=== PATIENT | male | born 1955 | race Two or more races ===

== ENCOUNTER 2018-08-26 12:05 | Emergency (ER) | payer OTHER ==
[~2018-08-26] VITALS: Ht 175.3 cm; Wt 86.2 kg
[~2018-08-26 12:05] MED LIST: AVAPRO300 MG; CVS COD LIVER473 ML; FLOVENT 110MCG7.9 GM; KAYEXALATE15 GM/60 M; LEXAPRO20 MG; LIPITOR20 MG; NEURONTIN800 MG; NEXIUM40 MG/PACK; NORVASC10 MG; ONGLYZA2.5 MG; OSEL75CA PO; PROVENTIL HFA6.7 GM IH; PROVENTIL3 ML/2.5 M IH; SEROQUEL200 MG; SPIRIVA RESPIMAT4 G1; STARLIX120 MG; SURFAK240 MG; TOPROL XL100 MG; TRANXENE T-TAB7.5 MG; TRILIPIX135 MG; ULTRAM50 MG; ZYNCOF 20-400120 ML PO
[2018-08-26] MEDS ORDERED: LIPITOR20 MG (12:14)
[2018-08-26] MEDS ORDERED: LEXAPRO5 MG (12:16)
[2018-08-26] MEDS ORDERED: ATIVAN1 MG (12:18)
[2018-08-26] MEDS ORDERED: FISH OIL CONC1000 MG (12:18)
[2018-08-26] MEDS ORDERED: PEPCID20 MG (12:19)
[2018-08-26] MEDS ORDERED: STERILE SALINE126 ML (12:19)
== END 2018-08-26 15:24 | disposition home or self-care (01) ==
LOC: ER 12:05
DX: B34.9 Viral infection, unspecified (principal)

== ENCOUNTER 2019-03-06 11:13 | Emergency (ER) | payer OTHER ==
[~2019-03-06] VITALS: Ht 175.3 cm; Wt 86.2 kg
[~2019-03-06 11:13] MED LIST changes: +ATIVAN1 MG; +FISH OIL CONC1000 MG; +LEXAPRO5 MG; +PEPCID20 MG; +STERILE SALINE126 ML
[2019-03-06] MEDS ORDERED: OMEGA-31000 MG (11:45)
[2019-03-06] MEDS ORDERED: CYTRA-2 ORAL S473 ML (11:46)
[2019-03-06] MEDS ORDERED: STARLIX120 MG (11:47)
[2019-03-06] MEDS ORDERED: LIPITOR20 MG (11:48)
[2019-03-06] MEDS ORDERED: SPIRIVA RESPIMAT4 G1 (11:48)
== END 2019-03-06 14:01 | disposition home or self-care (01) ==
LOC: ER 11:13
DX: M72.2 Plantar fascial fibromatosis (principal)

== ENCOUNTER 2019-06-12 09:31 | Emergency (ER) | payer OTHER ==
[~2019-06-12] VITALS: Ht 175.3 cm; Wt 85.7 kg
[~2019-06-12 09:31] MED LIST changes: +CYTRA-2 ORAL S473 ML; +OMEGA-31000 MG
[2019-06-12] MEDS ORDERED: FLOVENT DISKU100 MCG IH (10:10)
[2019-06-12] MEDS ORDERED: LEVSIN0.125 MG PO (10:10)
[2019-06-12] MEDS ORDERED: LEXAPRO5 MG PO (10:11)
[2019-06-12] MEDS ORDERED: PEPCID AC20 MG PO (10:11)
[2019-06-12] MEDS ORDERED: SPIRIVA RESPIMAT4 G1 IH (10:11)
[2019-06-12] MEDS ORDERED: ATIVAN0.5 M1 PO (10:12)
[2019-06-12] MEDS ORDERED: SEROQUEL200 MG PO (10:12)
== END 2019-06-12 13:07 | disposition home or self-care (01) ==
LOC: ER 09:31
DX: K52.89 Other specified noninfective gastroenteritis and colitis (principal)

== ENCOUNTER 2020-02-12 14:30 | Emergency (ER) | payer OTHER ==
[~2020-02-12] VITALS: Ht 175.3 cm; Wt 84.8 kg
[~2020-02-12 14:30] MED LIST changes: +ATIVAN0.5 M1 PO; +FLOVENT DISKU100 MCG IH; +LEVSIN0.125 MG PO; +LEXAPRO5 MG PO; +PEPCID AC20 MG PO; +SEROQUEL200 MG PO; +SPIRIVA RESPIMAT4 G1 IH
== END 2020-02-12 17:03 | disposition home or self-care (01) ==
LOC: ER 14:30
DX: S61.022A Laceration with foreign body of left thumb without damage to nail, initial encounter (principal); W45.8XXA Other foreign body or object entering through skin, initial encounter; Y93.89 Activity, other specified; Y92.89 Other specified places as the place of occurrence of the external cause; Y99.8 Other external cause status

== ENCOUNTER 2020-02-22 09:54 | Emergency (ER) | payer OTHER ==
[~2020-02-22] VITALS: Ht 175.3 cm; Wt 82.6 kg
== END 2020-02-22 10:42 | disposition home or self-care (01) ==
LOC: ER 09:54
DX: Z48.02 Encounter for removal of sutures (principal)

== ENCOUNTER 2022-09-02 12:13 | Emergency (ER) | payer OTHER ==
[~2022-09-02] VITALS: Ht 175.3 cm; Wt 86.2 kg
[2022-09-02] MEDS ORDERED: CEFUROXIME500 MG PO (12:45)
[2022-09-02] MEDS ORDERED: BUPROPION XL150 MG PO (12:46)
[2022-09-02] MEDS ORDERED: ALLOPURINOL100 MG PO (12:47)
[2022-09-02] MEDS ORDERED: FARXIGA10 MG (12:48)
[2022-09-02] MEDS ORDERED: HYOSCYAMINE0.125 M1 SL (12:49)
[2022-09-02] MEDS ORDERED: METOPROLOL SUCC50 MG PO (12:49)
[2022-09-02] MEDS ORDERED: QUETIAPINE FUM400 MG PO (12:49)
[2022-09-02] MEDS ORDERED: LORAZEPAM1 MG PO (12:50)
[2022-09-02] MEDS ORDERED: ATORVASTATIN CA10 MG PO (12:50)
== END 2022-09-02 15:43 | disposition home or self-care (01) ==
LOC: ER 12:13
DX: K52.9 Noninfective gastroenteritis and colitis, unspecified (principal); I10 Essential (primary) hypertension; Z88.0 Allergy status to penicillin; Z88.8 Allergy status to other drugs, medicaments and biological substances

== ENCOUNTER 2023-01-28 09:24 | Emergency (ER) | payer OTHER ==
[~2023-01-28] VITALS: Ht 175.3 cm; Wt 83.5 kg
[~2023-01-28 09:24] MED LIST changes: +ALLOPURINOL100 MG PO; +ATORVASTATIN CA10 MG PO; +BUPROPION XL150 MG PO; +CEFUROXIME500 MG PO; +FARXIGA10 MG; +HYOSCYAMINE0.125 M1 SL; +LORAZEPAM1 MG PO; +METOPROLOL SUCC50 MG PO; +QUETIAPINE FUM400 MG PO
== END 2023-01-28 12:52 | disposition home or self-care (01) ==
LOC: ER 09:24
DX: B34.9 Viral infection, unspecified (principal); R50.9 Fever, unspecified; E11.9 Type 2 diabetes mellitus without complications; I10 Essential (primary) hypertension; Z88.0 Allergy status to penicillin; Z88.1 Allergy status to other antibiotic agents; Z20.822 Contact with and (suspected) exposure to COVID-19

== ENCOUNTER 2024-08-27 18:36 | Emergency (ER) | payer OTHER ==
[~2024-08-27] VITALS: Ht 175.3 cm; Wt 79.4 kg
[2024-08-27] MEDS ORDERED: ATROVENT HFA12.9 GM IH (19:10)
[2024-08-27] MEDS ORDERED: SEROQUEL200 MG PO (19:10)
[2024-08-27] MEDS ORDERED: QNASL10.6 GM NS (19:10)
[2024-08-27] MEDS ORDERED: WELLBUTRIN XL150 M1 PO (19:10)
[2024-08-27] MEDS ORDERED: JANUVIA50 MG PO (19:11)
[2024-08-27] MEDS ORDERED: TOPROL XL50 M1 PO (19:11)
[2024-08-27] MEDS ORDERED: PERCOCET 5-3251 EACH PO (19:11)
[2024-08-27] MEDS ORDERED: NEURONTIN800 MG PO (19:12)
[2024-08-27] MEDS ORDERED: NATEGLINIDE120 MG PO (19:12)
[2024-08-27] MEDS ORDERED: NORVASC5 MG PO (19:12)
[2024-08-27] MEDS ORDERED: LEVSIN/SL0.125 MG SL (19:12)
[2024-08-27] MEDS ORDERED: LIPITOR20 MG PO (19:12)
[2024-08-27] MEDS ORDERED: ACETAMINOPHEN 500 MG GEL..CAP PO ONE (21:00)
== END 2024-08-27 22:06 ==
LOC: ER 18:39
DX: S40.011A Contusion of right shoulder, initial encounter (principal); W18.39XA Other fall on same level, initial encounter; Y93.89 Activity, other specified; Y92.89 Other specified places as the place of occurrence of the external cause; Y99.9 Unspecified external cause status; I10 Essential (primary) hypertension; E11.9 Type 2 diabetes mellitus without complications; Z79.84 Long term (current) use of oral hypoglycemic drugs; Z88.0 Allergy status to penicillin; Z88.8 Allergy status to other drugs, medicaments and biological substances; Z87.09 Personal history of other diseases of the respiratory system

== ENCOUNTER 2025-01-05 22:02 | Emergency (ER) | payer OTHER ==
[~2025-01-05] VITALS: Ht 175.3 cm; Wt 73.9 kg
[~2025-01-05 22:02] MED LIST changes: +ATROVENT HFA12.9 GM IH; +JANUVIA50 MG PO; +LEVSIN/SL0.125 MG SL; +LIPITOR20 MG PO; +NATEGLINIDE120 MG PO; +NEURONTIN800 MG PO; +NORVASC5 MG PO; +PERCOCET 5-3251 EACH PO; +QNASL10.6 GM NS; +TOPROL XL50 M1 PO; +WELLBUTRIN XL150 M1 PO
[2025-01-05] MEDS ORDERED: CIPRO500 MG PO (23:09)
[2025-01-05] MEDS ORDERED: PROTONIX40 MG PO (23:09)
[2025-01-05] MEDS ORDERED: PROBIOTIC1 EAC2 PO (23:09)
[2025-01-05] MEDS ORDERED: CLINDAMYCIN HCL 300 MG CAPSULE PO ONE (23:15)
== END 2025-01-06 00:16 | disposition home or self-care (01) ==
LOC: ER 22:24
DX: S91.115A Laceration without foreign body of left lesser toe(s) without damage to nail, initial encounter (principal); X58.XXXA Exposure to other specified factors, initial encounter; Y93.89 Activity, other specified; Y92.89 Other specified places as the place of occurrence of the external cause; Y99.9 Unspecified external cause status; E11.9 Type 2 diabetes mellitus without complications; Z79.84 Long term (current) use of oral hypoglycemic drugs; I10 Essential (primary) hypertension; Z88.0 Allergy status to penicillin; Z88.8 Allergy status to other drugs, medicaments and biological substances